=== PATIENT | female | born 1995 ===

== ENCOUNTER 2024-02-24 08:51 | Outpatient (REF) | payer OTHER, SELFPAY ==
--- NOTE | ~2024-02-24 | US_ITS ---
EXAMINATION: US PELVIS CLINICAL INFORMATION: Last menstrual. 02/13/2024. Right-sided pelvic pain. No previous imaging. COMPARISON: None available. TECHNIQUE: Ultrasound of the pelvis is performed using both transabdominal and transvaginal transducers along with Doppler. Transvaginal imaging is performed due to inadequate visualization transabdominally. FINDINGS: Uterus is anteverted and measures 7.5 x 3.1 x 4.3 cm. Endometrial thickness is 6 mm. No significant free fluid. Bilateral ovaries are unremarkable. Right ovary measures 2.9 x 2.0 x 2.5 cm, volume 10.2 mL. Left ovary measures 3.3 x 1.9 x 1.9 cm, volume 6.2 mL. US/US pelvic and transvaginal IMPRESSION: Endometrial thickness is 6 mm. Unremarkable bilateral ovaries.
== END 2024-02-24 08:52 | disposition home or self-care (01) ==
LOC: HO.UMASIMG 08:51
PROVIDERS: Visit Provider Family Medicine
DX: R10.2 Pelvic and perineal pain (principal); R10.31 Right lower quadrant pain
CPT/HCPCS: 76830; 76856